=== PATIENT | male | born 1990 | race African-American/Black ===

== ENCOUNTER 2020-06-09 13:03 | Emergency (ER) | payer OTHER, SELFPAY ==
--- NOTE | 2020-06-09 14:16 | EDPHYS ---
Physician Documentation [facility] Name: Naveen Emmnauel Age: 29 yrs Sex: Male : 1990 Arrival Date: 06/09/2020 Time: 13:11 Bed 26 Private MD: ED Physician Remberto Marie HPI: 06/09 14:11 This 29 yrs old Black Male presents to ER via Ambulatory with complaints of STD rodrick Exposure. 14:11 The patient presents with urinary symptoms, dribbling of urine, dysuria. Onset: The rodrick symptoms/episode began/occurred 3 day(s) ago. Modifying factors: The symptoms are alleviated by nothing, the symptoms are aggravated by urinating, sexual intercourse. Associated signs and symptoms: The patient has no apparent associated signs or symptoms. Severity of symptoms: At their worst the symptoms were mild, in the emergency department the symptoms are unchanged. The patient has not experienced similar symptoms in the past. Historical: - Allergies: 13:16 No Known Allergies; tw2 - Home Meds: 13:16 None [Active]; tw2 - PMHx: 13:16 None; tw2 - PSHx: 13:16 None; tw2 - Immunization history:: Adult Immunizations. - Social history:: Smoking status: Patient denies any tobacco usage or history of. - Family history:: not pertinent. ROS: 14:11 Constitutional: Negative for fever, chills, and weight loss, Eyes: Negative for injury, rodrick pain, redness, and discharge, ENT: Negative for injury, pain, and discharge, Neck: Negative for injury, pain, and swelling, Cardiovascular: Negative for chest pain, palpitations, and edema, Respiratory: Negative for shortness of breath, cough, wheezing, and pleuritic chest pain, Abdomen/GI: Negative for abdominal pain, nausea, vomiting, diarrhea, and constipation, Back: Negative for injury and pain, MS/Extremity: Negative for injury and deformity, Skin: Negative for injury, rash, and discoloration, Neuro: Negative for headache, weakness, numbness, tingling, and seizure, Psych: Negative for depression, anxiety, suicide ideation, homicidal ideation, and hallucinations, Allergy/Immunology: Negative for hives, rash, and allergies, Endocrine: Negative for neck swelling, polydipsia, polyuria, polyphagia, and marked weight changes, Hematologic/Lymphatic: Negative for swollen nodes, abnormal bleeding, and unusual bruising. 14:11 : Positive for urinary symptoms, urinary frequency, burning with urination, penile discharge. Exam: 14:11 Constitutional: This is a well developed, well nourished patient who is awake, alert, rodrick and in no acute distress. Head/Face: Normocephalic, atraumatic. Eyes: Pupils equal round and reactive to light, extra-ocular motions intact. Lids and lashes normal. Conjunctiva and sclera are non-icteric and not injected. Cornea within normal limits. Periorbital areas with no swelling, redness, or edema. ENT: Nares patent. No nasal discharge, no septal abnormalities noted. Tympanic membranes are normal and external auditory canals are clear. Oropharynx with no redness, swelling, or masses, exudates, or evidence of obstruction, uvula midline. Mucous membranes moist. Neck: Trachea midline, no thyromegaly or masses palpated, and no cervical lymphadenopathy. Supple, full range of motion without nuchal rigidity, or vertebral point tenderness. No Meningismus. Chest/axilla: Normal chest wall appearance and motion. Nontender with no deformity. No lesions are appreciated. Cardiovascular: Regular rate and rhythm with a normal S1 and S2. No gallops, murmurs, or rubs. Normal PMI, no JVD. No pulse deficits. Respiratory: Lungs have equal breath sounds bilaterally, clear to auscultation and percussion. No rales, rhonchi or wheezes noted. No increased work of breathing, no retractions or nasal flaring. Abdomen/GI: Soft, non-tender, with normal bowel sounds. No distension or tympany. No guarding or rebound. No evidence of tenderness throughout. Back: No spinal tenderness. No costovertebral tenderness. Full range of motion. Skin: Warm, dry with normal turgor. Normal color with no rashes, no lesions, and no evidence of cellulitis. MS/ Extremity: Pulses equal, no cyanosis. Neurovascular intact. Full, normal range of motion. Neuro: Awake and alert, GCS 15, oriented to person, place, time, and situation. Cranial nerves II-XII grossly intact. Motor strength 5/5 in all extremities. Sensory grossly intact. Cerebellar exam normal. Normal gait. Psych: Awake, alert, with orientation to person, place and time. Behavior, mood, and affect are within normal limits. 14:11 : CVA tenderness, is absent, Male external genitalia: Circumcision noted. Bladder: is normal, Sexual behavior: the patient is sexually active, and reports multiple partners. Vital Signs: 13:14 BP 132 / 77; Pulse 74; Resp 17; Temp 97.3(TE); Pulse Ox 97% on R/A; Weight 90.72 kg tw2 (R); Height 5 ft. 10 in. (177.80 cm); Pain 0/10; 13:14 Body Mass Index 28.70 (90.72 kg, 177.80 cm) tw2 MDM: 13:42 Patient medically screened. rodrick 14:14 Data reviewed: vital signs, nurses notes. [facility] 14:14 Differential diagnosis: UTI, prostatitis, urethritis. Data interpreted: Cardiac rodrick monitor: not applicable for this patient encounter. rate is 74 beats/min, Pulse oximetry: on room air is 97 %. Counseling: I had a detailed discussion with the patient and/or guardian regarding: the historical points, exam findings, and any diagnostic results supporting the discharge/admit diagnosis, the need for outpatient follow up, for definitive care, a family practitioner. ED course: no sex, follow up pcp. Administered Medications: 14:33 Drug: Rocephin (cefTRIAXone) 500 mg Route: IM; Site: right ventrogluteal; vc 14:50 Follow up: Response: No adverse reaction vc 14:33 Drug: Cipro 500 mg Route: PO; vc 14:50 Follow up: Response: No adverse reaction vc 14:33 Drug: Zithromax 1 grams Route: PO; vc 14:50 Follow up: Response: No adverse reaction vc Disposition: 06/09/20 14:16 Discharged to Home. Impression: Urethral discharge, Urethral discharge, unspecified. - Condition is Stable. - Discharge Instructions: Sexually Transmitted Disease, Sexually Transmitted Disease, [id number], Urethritis, Adult. - Prescriptions for Doxycycline Hyclate 100 mg Oral Tablet - take 1 tablet by ORAL route every 12 hours; 20 tablet. - Medication Reconciliation Form, Thank You Letter, Antibiotic Education, Prescription Opioid Use form. - Follow up: Private Physician; When: 2 - 3 days; Reason: Recheck today's complaints, Continuance of care, Re-evaluation by your physician. - Problem is new. - Symptoms have improved. Signatures: Remberto Marie MD MD cha Wise, Tara, RN RN tw2 Emily Giron RN RN vc Corrections: (The following items were deleted from the chart) 14:53 14:16 06/09/2020 14:16 Discharged to Home. Impression: Urethral discharge; Urethral vc discharge, unspecified. Condition is Stable. Forms are Medication Reconciliation Form, Thank You Letter, Antibiotic Education, Prescription Opioid Use. Follow up: Private Physician; When: 2 - 3 days; Reason: Recheck today's complaints, Continuance of care, Re-evaluation by your physician. Problem is new. Symptoms have improved. rodrick
--- NOTE | 2020-06-09 14:16 | ER ---
Nurse's Notes [facility] Name: Naveen Emmanuel Age: 29 yrs Sex: Male : 1990 Arrival Date: 06/09/2020 Time: 13:11 Bed 26 Private MD: Diagnosis: Urethral discharge;Urethral discharge, unspecified Presentation: 06/09 13:14 Chief complaint: Patient states: i think i have a sexually transmitted disease, i had tw2 sex with the same girl last week as my friends and we think it is gonorrhea, i have been leaking green stuff as well. Coronavirus screen: Patient denies a cough. Patient denies shortness of breath or difficulty breathing. Patient denies measured and/or subjective temperature greater than 100.4F prior to today's visit. Patient denies travel on a cruise ship or to a country the [facility] currently lists as an affected area. Patient denies contact with known and/or suspected case of COVID-19. Ebola Screen: Patient denies travel to an Ebola-affected area in the 21 days before illness onset. Initial Sepsis Screen: Does the patient meet any 2 criteria? No. Patient's initial sepsis screen is negative. Does the patient have a suspected source of infection? No. Patient's initial sepsis screen is negative. Risk Assessment: Do you want to hurt yourself or someone else? Patient reports no desire to harm self or others. Onset of symptoms was June 09, 2020. 13:14 Method Of Arrival: Ambulatory tw2 13:14 Acuity: CELY 4 tw2 Triage Assessment: 13:18 General: Appears in no apparent distress. Behavior is calm, cooperative, appropriate tw2 for age. Pain: Denies pain. Historical: - Allergies: 13:16 No Known Allergies; tw2 - Home Meds: 13:16 None [Active]; tw2 - PMHx: 13:16 None; tw2 - PSHx: 13:16 None; tw2 - Immunization history:: Adult Immunizations. - Social history:: Smoking status: Patient denies any tobacco usage or history of. - Family history:: not pertinent. Screenin:37 Abuse screen: Denies threats or abuse. Nutritional screening: No deficits noted. tw2 Tuberculosis screening: No symptoms or risk factors identified. Fall Risk None identified. Assessment: 13:36 General: Appears in no apparent distress. Behavior is calm, cooperative, appropriate tw2 for age. Pain: Denies pain. Neuro: Level of Consciousness is awake, alert, obeys commands, Oriented to person, place, time, situation. Cardiovascular: Patient's skin is warm and dry. Respiratory: Airway is patent Respiratory effort is even, unlabored, Respiratory pattern is regular, symmetrical. GI: No signs and/or symptoms were reported involving the gastrointestinal system. : Reports discharge, from penis that is green, yellow. EENT: No signs and/or symptoms were reported regarding the EENT system. Derm: No signs and/or symptoms reported regarding the dermatologic system. Musculoskeletal: Range of motion: intact in all extremities. 14:34 Reassessment: Discharge pending shot time. vc Vital Signs: 13:14 BP 132 / 77; Pulse 74; Resp 17; Temp 97.3(TE); Pulse Ox 97% on R/A; Weight 90.72 kg tw2 (R); Height 5 ft. 10 in. (177.80 cm); Pain 0/10; 13:14 Body Mass Index 28.70 (90.72 kg, 177.80 cm) tw2 ED Course: 13:11 Patient arrived in ED. fj1 13:15 Triage completed. tw2 13:15 Arm band placed on. tw2 13:37 Bed in low position. Call light in reach. tw2 13:41 Remberto Marie MD is Attending Physician. rodrick 14:13 Emily Giron, RN is Primary Nurse. vc 14:52 No provider procedures requiring assistance completed. Patient did not have IV access vc during this emergency room visit. Administered Medications: 14:33 Drug: Rocephin (cefTRIAXone) 500 mg Route: IM; Site: right ventrogluteal; vc 14:50 Follow up: Response: No adverse reaction vc 14:33 Drug: Cipro 500 mg Route: PO; vc 14:50 Follow up: Response: No adverse reaction vc 14:33 Drug: Zithromax 1 grams Route: PO; vc 14:50 Follow up: Response: No adverse reaction vc Outcome: 14:16 Discharge ordered by . rodrick 14:52 Discharged to home ambulatory. vc 14:52 Condition: good 14:52 Discharge instructions given to patient, Instructed on discharge instructions, follow up and referral plans. medication usage, Demonstrated understanding of instructions, follow-up care, medications, Prescriptions given X 1. 14:53 Patient left the ED. vc Signatures: Remberto Marie MD MD cha Wise, Tara RN RN tw2 Emily Giron RN RN Brenden Ortez fj1
[2020-06-09] MEDS ORDERED: CIPROFLOXACIN HCL 500 MG TAB ONE (14:26)
[2020-06-09] MEDS ORDERED: AZITHROMYCIN 250 MG TAB ONE (14:26)
[2020-06-09] MEDS ORDERED: CEFTRIAXONE 500 MG/VIAL ONE (14:26)
[2020-06-09] MEDS ORDERED: LIDOCAINE 1% MPF 2 ML AMPULE ONE (14:27)
[2020-06-09 14:59] VITALS: BP 132/77; TEMP 97.3; O2SAT 97
== END 2020-06-09 14:53 | disposition home or self-care (01) ==
LOC: ER 13:03
DX: R36.9 Urethral discharge, unspecified (principal)
CPT/HCPCS: 96372; 99283; J0696; J2001

== ENCOUNTER 2020-11-24 16:50 | Emergency (ER) | payer SELFPAY ==
--- OUTSIDE RECORDS SUMMARY | 2020-11-24 16:52 | XMS REPORT | Continuity of Care Document ---
:1990 Author Organization [facility] t Address [address] [place] [address] Care Team Providers Name Role Phone Rashida CASTILLO Attending Clinician Problems This patient has no known problems. Allergies, Adverse Reactions, Alerts This patient has no known allergies or adverse reactions. Medications This patient has no known medications. Procedures This patient has no known procedures. Encounters Start End Encounter Admission Attending Care Care Encounter Source Date/Time Date/Time Type Type Clinicians Facility Department ID 2020-03-15 2020-03-15 Emergency [facility] [id number] 14:10:58 15:32:00 Fausto Brown [id number] [place] [id number] [place] [id number] Results This patient has no known results.
--- NOTE | 2020-11-24 17:04 | ER ---
Nurse's Notes [facility] Name: Naveen Emmanuel Age: 30 yrs Sex: Male : 1990 Arrival Date: 11/24/2020 Time: 16:51 Bed Waiting Private MD: Diagnosis: Unspecified sexually transmitted disease Presentation: 11/24 16:56 Chief complaint: Patient states: "I think I got gonorrhea. I've been having burning ss with urination.". Coronavirus screen: Client denies travel out of the [place] in the last 14 days. Ebola Screen: Patient denies exposure to infectious person. Patient denies travel to an Ebola-affected area in the 21 days before illness onset. Initial Sepsis Screen: Does the patient meet any 2 criteria? No. Patient's initial sepsis screen is negative. Does the patient have a suspected source of infection? No. Patient's initial sepsis screen is negative. Risk Assessment: Do you want to hurt yourself or someone else? Patient reports no desire to harm self or others. Onset of symptoms was November 22, 2020. 16:56 Method Of Arrival: Ambulatory ss 16:56 Acuity: CELY 4 ss Historical: - Allergies: 16:57 No Known Allergies; ss - Home Meds: 16:57 None [Active]; ss - PMHx: 16:57 None; ss - PSHx: 16:57 None; ss - Immunization history:: Adult Immunizations up to date. - Social history:: Smoking status: Patient denies any tobacco usage or history of. Screenin:56 Abuse screen: Denies threats or abuse. Denies injuries from another. Nutritional ss screening: No deficits noted. Tuberculosis screening: No symptoms or risk factors identified. Fall Risk None identified. Assessment: 16:56 General: Appears in no apparent distress. comfortable, Behavior is calm, cooperative. ss General: Denies fever, feeling ill, fatigue, chills. Pain: Denies pain. Neuro: Level of Consciousness is awake, alert, obeys commands, Oriented to person, place, time, situation. Cardiovascular: Capillary refill < 3 seconds is brisk in bilateral fingers. Respiratory: Airway is patent Respiratory effort is even, unlabored, Respiratory pattern is regular, symmetrical. GI: Patient currently denies. : Reports discharge, from penis that is since x 2 days. EENT: Nares are clear. Derm: Skin is intact, is healthy with good turgor, Skin is pink, warm \\T\\ dry. normal. Musculoskeletal: Circulation, motion, and sensation intact. Range of motion: intact in all extremities, Swelling absent. Vital Signs: 16:57 Pulse 89; Resp 16; Temp 97.8(TE); Pulse Ox 99% on R/A; Weight 92.99 kg; Height 5 ft. 11 ss in. (180.34 cm); Pain 0/10; 16:59 BP 148 / 96; ss 16:57 Body Mass Index 28.59 (92.99 kg, 180.34 cm) ss ED Course: 16:51 Patient arrived in ED. as 16:54 Britany Rush FNP-C [facility]. kb 16:54 Remberto Marie MD is Attending Physician. kb 16:56 Triage completed. ss 16:56 Patient has correct armband on for positive identification. Bed in low position. Call ss light in reach. 16:56 No provider procedures requiring assistance completed. Patient did not have IV access ss during this emergency room visit. 16:57 Arm band placed on right wrist. ss 17:25 Nicole Vila, EDIL is Primary Nurse. ss Administered Medications: 17:08 Drug: Zithromax 1 grams Route: PO; ss 17:25 Follow up: Response: No adverse reaction ss 17:08 Drug: Rocephin (cefTRIAXone) 250 mg Route: IM; Site: left gluteus; ss 17:25 Follow up: Response: No adverse reaction; Medication administered at discharge. ss Outcome: 17:03 Discharge ordered by . kb 17:26 Discharged to home ambulatory. ss 17:26 Condition: good 17:26 Discharge instructions given to patient, family, Instructed on discharge instructions, follow up and referral plans. Demonstrated understanding of instructions, follow-up care. 17:26 Patient left the ED. ss Signatures: Britany Rush FNP-C FNP-Katlyn Allan as Nicole Vila, RN RN ss
--- NOTE | 2020-11-24 17:04 | EDPHYS ---
Physician Documentation [facility] Name: Naveen Emmanuel Age: 30 yrs Sex: Male : 1990 Arrival Date: 11/24/2020 Time: 16:51 Bed Waiting Private MD: Remberto Dewey HPI: 11/24 17:01 This 30 yrs old Black Male presents to ER via Ambulatory with complaints of STD kb Exposure. 17:01 The patient presents with a possible STD exposure, symptoms include dysuria, green kb penile discharge. Onset: The symptoms/episode began/occurred 2 day(s) ago. Modifying factors: The symptoms are alleviated by nothing, the symptoms are aggravated by nothing. Associated signs and symptoms: The patient has no apparent associated signs or symptoms. Severity of symptoms: At their worst the symptoms were moderate, in the emergency department the symptoms are unchanged. The patient has not experienced similar symptoms in the past. The patient has not recently seen a physician. Pt reports he believes he has gonorrhea because he has had burning with urination and green discharge for 2 days. Historical: - Allergies: 16:57 No Known Allergies; ss - Home Meds: 16:57 None [Active]; ss - PMHx: 16:57 None; ss - PSHx: 16:57 None; ss - Immunization history:: Adult Immunizations up to date. - Social history:: Smoking status: Patient denies any tobacco usage or history of. ROS: 17:00 Constitutional: Negative for fever, chills, and weight loss, Cardiovascular: Negative kb for chest pain, palpitations, and edema, Respiratory: Negative for shortness of breath, cough, wheezing, and pleuritic chest pain, Abdomen/GI: Negative for abdominal pain, nausea, vomiting, diarrhea, and constipation, MS/Extremity: Negative for injury and deformity, Skin: Negative for injury, rash, and discoloration, Neuro: Negative for headache, weakness, numbness, tingling, and seizure. 17:00 : Positive for burning with urination, penile discharge. Exam: 17:00 Constitutional: This is a well developed, well nourished patient who is awake, alert, kb and in no acute distress. Head/Face: Normocephalic, atraumatic. Chest/axilla: Normal chest wall appearance and motion. Nontender with no deformity. No lesions are appreciated. Cardiovascular: Regular rate and rhythm with a normal S1 and S2. No gallops, murmurs, or rubs. Normal PMI, no JVD. No pulse deficits. Respiratory: Lungs have equal breath sounds bilaterally, clear to auscultation and percussion. No rales, rhonchi or wheezes noted. No increased work of breathing, no retractions or nasal flaring. Abdomen/GI: Soft, non-tender, with normal bowel sounds. No distension or tympany. No guarding or rebound. No evidence of tenderness throughout. Skin: Warm, dry with normal turgor. Normal color with no rashes, no lesions, and no evidence of cellulitis. MS/ Extremity: Pulses equal, no cyanosis. Neurovascular intact. Full, normal range of motion. Neuro: Awake and alert, GCS 15, oriented to person, place, time, and situation. Cranial nerves II-XII grossly intact. Motor strength 5/5 in all extremities. Sensory grossly intact. Cerebellar exam normal. Normal gait. Vital Signs: 16:57 Pulse 89; Resp 16; Temp 97.8(TE); Pulse Ox 99% on R/A; Weight 92.99 kg; Height 5 ft. 11 ss in. (180.34 cm); Pain 0/10; 16:59 BP 148 / 96; ss 16:57 Body Mass Index 28.59 (92.99 kg, 180.34 cm) ss MDM: 17:00 Data reviewed: vital signs, nurses notes. Data interpreted: Pulse oximetry: on room air kb is 99 %. Interpretation: normal. Counseling: I had a detailed discussion with the patient and/or guardian regarding: the historical points, exam findings, and any diagnostic results supporting the discharge/admit diagnosis, the need for outpatient follow up, a family practitioner, to return to the emergency department if symptoms worsen or persist or if there are any questions or concerns that arise at home. 17:03 Patient medically screened. kb Administered Medications: 17:08 Drug: Zithromax 1 grams Route: PO; ss 17:25 Follow up: Response: No adverse reaction ss 17:08 Drug: Rocephin (cefTRIAXone) 250 mg Route: IM; Site: left gluteus; ss 17:25 Follow up: Response: No adverse reaction; Medication administered at discharge. Disposition: 18:40 Co-signature as Attending Physician, Remberto Marie MD I agree with the assessment and rodrick plan of care. Disposition: 11/24/20 17:03 Discharged to Home. Impression: Unspecified sexually transmitted disease. - Condition is Stable. - Discharge Instructions: Sexually Transmitted Disease, [id number]. - Medication Reconciliation Form, Thank You Letter, Antibiotic Education, Prescription Opioid Use form. - Follow up: Emergency Department; When: As needed; Reason: Worsening of condition. Follow up: Private Physician; When: 2 - 3 days; Reason: Recheck today's complaints, Continuance of care, Re-evaluation by your physician. Signatures: Britany Rush, [employer]C [employer]-Uvaldob Remberto Marie MD MD cha Smirch, Shelby, RN RN ss Corrections: (The following items were deleted from the chart) 17:26 17:03 11/24/2020 17:03 Discharged to Home. Impression: Unspecified sexually transmitted ss disease. Condition is Stable. Forms are Medication Reconciliation Form, Thank You Letter, Antibiotic Education, Prescription Opioid Use. Follow up: Emergency Department; When: As needed; Reason: Worsening of condition. Follow up: Private Physician; When: 2 - 3 days; Reason: Recheck today's complaints, Continuance of care, Re-evaluation by your physician. kb
[2020-11-24] MEDS ORDERED: WATER FOR INJ,STERILE 10 ML ONE (17:16)
[2020-11-24] MEDS ORDERED: AZITHROMYCIN 250 MG TAB ONE (17:16)
[2020-11-24] MEDS ORDERED: CEFTRIAXONE 250 MG/VIAL ONE (17:16)
[2020-11-24 17:39] VITALS: TEMP 97.8; O2SAT 99
[2020-11-24 17:40] VITALS: BP 148/96
== END 2020-11-24 17:26 | disposition home or self-care (01) ==
LOC: ER 16:50
DX: A64 Unspecified sexually transmitted disease (principal)
CPT/HCPCS: 96372; 99283; J0696

== ENCOUNTER 2022-03-02 10:05 | Emergency (ER) | payer SELFPAY ==
--- OUTSIDE RECORDS SUMMARY | 2022-03-02 10:08 | XMS REPORT | Continuity of Care Document ---
:1990 Author Organization [facility] t Address [address] [place] [address] Care Team Providers Name Role Phone Pcp, Does Not Have A Primary Care Physician Felipe Glynn DO Attending Clinician Felipe GLYNN Attending Clinician Unavailable Rashida SANCHEZP Attending Clinician RAHSIDA Attending Clinician Unavailable Problems Condition Condition Condition Status Onset Resolution Last Treating Co mments Source Name Details Category Date Date Treatment Clinician Date No known No known Disease Unive rs active active ity of problems problems [facility] Allergies, Adverse Reactions, Alerts Allergy Allergy Status Severity Reaction(s) Onset Inactive Treating Comm ents Source Name Type Date Date Clinician NO KNOWN Drug Active Univers ALLERGIE Class ity of S [facility] Social History Social Habit Start Date Stop Date Quantity Comments Source Exposure to Not sure [facility] SARS-CoV-2 (event) Medica l Branch Sex Assigned At [birth year] [facility] 00:00:00 00:00:00 [facility] Smoking Status Start Date Stop Date Source Unknown if ever smoked [facility] Medications Ordered Filled Start Stop Current Ordering Indication Dosage Frequency Signature Comments Components Source Medication Medication Date Date Medication? Clinician (SIG) Name Name cefTRIAXone Yes 500mg 500 mg, Un marcin (ROCEPHIN) 2-16 Intramuscu ity of injection 22:00: lar, Q24H, [place] 500 mg 00 First dose Medical on Mon Branch 12/29/21 at 1600, Until Discontinu ed, BRAIN
Re ason for Anti-Infec tive: Empiric Therapy for Suspected Infection< br>Empiric Therapy Site: Pelvic
Duration of therapy: 72 hours azithromyci 1000mg 1,000 mg, Univers n 12-29 Oral, ity of (ZITHROMAX) 22:00: 21:04 ONCE, 1 [place] tablet 00 :00 dose, On Medical 1,000 mg Wed Branch 12/29/21 at 1600, BRAIN
Re ason for Anti-Infec tive: Empiric Therapy for Suspected Infection< br>Empiric Therapy Site: Pelvic
Duration of therapy: 72 hours No known No Univers medications 12-29 ity of 14:50: [address] Vital Signs Vital Name Observation Time Observation Value Comments Source Systolic blood 2021-12-29 20:49:00 153 mm[Hg] Univer sity of pressure [facility] Diastolic blood 2021-12-29 20:49:00 86 mm[Hg] [facility] 2021-12-29 20:49:00 81 /min [facility] Body temperature 2021-12-29 20:49:00 37.22 Rachel [facility] Respiratory rate 2021-12-29 20:49:00 16 /min [facility] Body height 2021-12-29 20:49:00 180.3 cm [facility] Body weight 2021-12-29 20:49:00 90.719 kg [facility] BMI 2021-12-29 20:49:00 27.89 kg/m2 [facility] Oxygen saturation in 2021-12-29 20:49:00 98 /min [facility] Arterial blood by [facility] Pulse oximetry Branch Procedures Procedure Date / Time Performed Performing Clinician [facility] e NOTICE OF PRIVACY 2021-12-29 20:48:28 Doctor Unassigned, No Univ [facility] CONSENT/REFUSAL FOR 2021-12-29 20:45:33 Doctor Unassigned, [facility] AND Name Medical Branch TREATMENT Encounters Start End Encounter Admission Attending Care Care Encounter Source Date/Time Date/Time Type Type Clinicians Facility Department ID 2021-12-29 2021-12-29 [facility] [id number] Univers 14:52:00 15:43:00 Nahomy BROWN [id number] yunior [facility] [id number] [facility] [id number] [address] 2021-12-29 2021-12-29 Emergency [facility] ERT [id number] Univers 14:52:00 15:43:00 NAHOMY mojica [facility] 2020-03-15 2020-03-[address] [facility] [id number] 14:10:58 15:32:00 Fausto Brown [id number] [place] [id number] [place] [id number] [facility] 2020-03-15 2020-03-15 Emergency [facility] ERT [id number] Univers 14:10:58 14:10:58 FAUSTO mojica [facility] Results This patient has no known results.
[2022-03-02] MEDS ORDERED: DOXYCYCLINE 100 MG CAP PO ONE (10:32)
[2022-03-02] MEDS ORDERED: AZITHROMYCIN 250 MG TAB ONE (10:32)
[2022-03-02] MEDS ORDERED: CEFTRIAXONE 1000 MG/VIAL ONE (10:32)
[2022-03-02 10:38] LABS: Urine Blood Negative (Negative); Urine Glucose Negative (Negative); Urine Protein Negative (Negative); Urine Specific Gravity 1.025 (1.005-1.030); Urine pH 6.5 (5.0-7.0)
--- NOTE | 2022-03-02 10:38 | EDPHYS ---
Physician Documentation [facility] Name: Naveen Emmanuel Age: 31 yrs Sex: Male : 1990 Arrival Date: 03/02/2022 Time: 10:07 Bed Treatment Private MD: Remberto Dewey HPI: 03/02 10:33 This 31 yrs old Black Male presents to ER via Unassigned with complaints of STD rodrick Exposure. 10:33 The patient presents with symptoms include yellow penile discharge, urinary symptoms, rodrick dysuria. Onset: The symptoms/episode began/occurred 3 day(s) ago. Modifying factors: The symptoms are alleviated by nothing, the symptoms are aggravated by urinating. Associated signs and symptoms: The patient has no apparent associated signs or symptoms. Severity of symptoms: At their worst the symptoms were mild, in the emergency department the symptoms are unchanged. The patient has experienced similar episodes in the past, multiple times. Historical: - Allergies: 10:37 No Known Allergies; ab2 - PMHx: 10:37 None; ab2 - Immunization history:: Adult Immunizations up to date. - Social history:: Smoking status: Patient reports the use of cigarette tobacco products, smokes one-half pack cigarettes per day. - Family history:: not pertinent. ROS: 10:33 Constitutional: Negative for fever, chills, and weight loss, Eyes: Negative for injury, rodrick pain, redness, and discharge, ENT: Negative for injury, pain, and discharge, Neck: Negative for injury, pain, and swelling, Cardiovascular: Negative for chest pain, palpitations, and edema, Respiratory: Negative for shortness of breath, cough, wheezing, and pleuritic chest pain, Abdomen/GI: Negative for abdominal pain, nausea, vomiting, diarrhea, and constipation, Back: Negative for injury and pain, MS/Extremity: Negative for injury and deformity, Skin: Negative for injury, rash, and discoloration, Neuro: Negative for headache, weakness, numbness, tingling, and seizure, Psych: Negative for depression, anxiety, suicide ideation, homicidal ideation, and hallucinations, Allergy/Immunology: Negative for hives, rash, and allergies, Endocrine: Negative for neck swelling, polydipsia, polyuria, polyphagia, and marked weight changes, Hematologic/Lymphatic: Negative for swollen nodes, abnormal bleeding, and unusual bruising. 10:33 : Positive for burning with urination, penile discharge, of the meatus. Exam: 10:33 Constitutional: This is a well developed, well nourished patient who is awake, alert, rodrick and in no acute distress. Head/Face: Normocephalic, atraumatic. Eyes: Pupils equal round and reactive to light, extra-ocular motions intact. Lids and lashes normal. Conjunctiva and sclera are non-icteric and not injected. Cornea within normal limits. Periorbital areas with no swelling, redness, or edema. ENT: Nares patent. No nasal discharge, no septal abnormalities noted. Tympanic membranes are normal and external auditory canals are clear. Oropharynx with no redness, swelling, or masses, exudates, or evidence of obstruction, uvula midline. Mucous membranes moist. Neck: Trachea midline, no thyromegaly or masses palpated, and no cervical lymphadenopathy. Supple, full range of motion without nuchal rigidity, or vertebral point tenderness. No Meningismus. Chest/axilla: Normal chest wall appearance and motion. Nontender with no deformity. No lesions are appreciated. Cardiovascular: Regular rate and rhythm with a normal S1 and S2. No gallops, murmurs, or rubs. Normal PMI, no JVD. No pulse deficits. Respiratory: Lungs have equal breath sounds bilaterally, clear to auscultation and percussion. No rales, rhonchi or wheezes noted. No increased work of breathing, no retractions or nasal flaring. Abdomen/GI: Soft, non-tender, with normal bowel sounds. No distension or tympany. No guarding or rebound. No evidence of tenderness throughout. Back: No spinal tenderness. No costovertebral tenderness. Full range of motion. Skin: Warm, dry with normal turgor. Normal color with no rashes, no lesions, and no evidence of cellulitis. MS/ Extremity: Pulses equal, no cyanosis. Neurovascular intact. Full, normal range of motion. Neuro: Awake and alert, GCS 15, oriented to person, place, time, and situation. Cranial nerves II-XII grossly intact. Motor strength 5/5 in all extremities. Sensory grossly intact. Cerebellar exam normal. Normal gait. Psych: Awake, alert, with orientation to person, place and time. Behavior, mood, and affect are within normal limits. 10:33 : Male external genitalia: normal, no abrasion, penile discharge, purulent, Bladder: is normal, Sexual behavior: the patient is sexually active, and reports multiple partners. Vital Signs: 10:36 BP 136 / 89; Pulse 72; Resp 18; Temp 97.9; Pulse Ox 100% on R/A; Weight 88.45 kg; ab2 Height 5 ft. 11 in. (180.34 cm); Pain 3/10; 10:55 BP 129 / 86; Pulse 74; Resp 17; Pulse Ox 100% on R/A; ab2 10:36 Body Mass Index 27.20 (88.45 kg, 180.34 cm) ab2 MDM: 10:25 Patient medically screened. rodrick 10:36 Differential diagnosis: prostatitis, urethritis. Data reviewed: vital signs, nurses rodrick notes. Data interpreted: security monitor: not applicable for this patient encounter. rate is 63 beats/min, rhythm is regular, Pulse oximetry: on room air is 100 %. 03/02 10:38 Order name: Urine Dipstick-Ancillary EDMS 03/02 10:20 Order name: Urine Dipstick-Ancillary (obtain specimen); Complete Time: 10:35 rodrick Administered Medications: 10:35 Drug: Doxycycline 200 mg Route: PO; ab2 10:36 Drug: Rocephin (cefTRIAXone) 1 grams Route: IM; Site: left vastus lateralis; ab2 10:36 Drug: Zithromax (azithromycin) 1 grams Route: PO; ab2 Disposition Summary: 03/02/22 10:37 Discharge [facility] Symptoms: have improved [facility] Condition: Stable [facility] Diagnosis - Other urethritis - gc rodrick - Dysuria rodrick Followup: rodrick - With: Private Physician - When: 2 - 3 days - Reason: Recheck today's complaints, Continuance of care, Re-evaluation by your physician Discharge Instructions: - Discharge Summary Sheet rodrick - Dysuria rodrick - Urethritis, Adult [facility] - Preventing Sexually Transmitted Infections, Adult [facility] Forms: - Medication Reconciliation Form [facility] - Thank You Letter rodrick - Antibiotic Education rodrick - Prescription Opioid Use [facility] Prescriptions: - Doxycycline Hyclate 100 mg Oral Tablet - take 1 tablet by ORAL route every 12 hours; 20 tablet; Refills: 0, Product rodrick Selection Permitted Signatures: Remberto Marie MD MD cha Bleininger, Alexis ab2 Corrections: (The following items were deleted from the chart) 10:24 10:20 Urine Test ordered. rodrick elliott
--- NOTE | 2022-03-02 10:38 | ER ---
Nurse's Notes [facility] Name: Naveen Emmanuel Age: 31 yrs Sex: Male : 1990 Arrival Date: 03/02/2022 Time: 10:07 Bed Treatment Private MD: Diagnosis: Other urethritis-gc;Dysuria Presentation: 03/02 10:36 Chief complaint: Patient states: Pt c/o burning with urination and green discharge from ab2 penis for 3 days now. Coronavirus screen: Vaccine status: Patient reports being unvaccinated. Client denies travel out of the [place] in the last 14 days. At this time, the client does not indicate any symptoms associated with coronavirus-19. Ebola Screen: Patient negative for fever greater than or equal to 101.5 degrees Fahrenheit, and additional compatible Ebola Virus Disease symptoms Patient denies exposure to infectious person. Patient denies travel to an Ebola-affected area in the 21 days before illness onset. No symptoms or risks identified at this time. Initial Sepsis Screen: Does the patient meet any 2 criteria? No. Patient's initial sepsis screen is negative. Does the patient have a suspected source of infection? No. Patient's initial sepsis screen is negative. Risk Assessment: Do you want to hurt yourself or someone else? Patient reports no desire to harm self or others. Onset of symptoms is unknown. 10:36 Method Of Arrival: Ambulatory ab2 10:36 Acuity: CELY 4 ab2 Historical: - Allergies: 10:37 No Known Allergies; ab2 - PMHx: 10:37 None; ab2 - Immunization history:: Adult Immunizations up to date. - Social history:: Smoking status: Patient reports the use of cigarette tobacco products, smokes one-half pack cigarettes per day. - Family history:: not pertinent. Screenin:38 Abuse screen: Denies threats or abuse. Denies injuries from another. Nutritional ab2 screening: No deficits noted. Tuberculosis screening: No symptoms or risk factors identified. Fall Risk None identified. Assessment: 10:37 General: Appears in no apparent distress. comfortable, Behavior is calm, cooperative, ab2 appropriate for age. Pain: Complains of pain in pelvis Pain does not radiate. Pain currently is 3 out of 10 on a pain scale. Neuro: Level of Consciousness is awake, alert, obeys commands, Oriented to person, place, time, situation, Appropriate for age Global Ceo are equal bilaterally Moves all extremities. Gait is steady, Speech is normal, Facial symmetry appears normal. Cardiovascular: No deficits noted. Denies chest pain, shortness of breath, Heart tones S1 S2 present Patient's skin is warm and dry. Respiratory: Airway is patent Respiratory effort is even, unlabored, Respiratory pattern is regular, symmetrical, Breath sounds are clear bilaterally. GI: No deficits noted. No signs and/or symptoms were reported involving the gastrointestinal system. : Reports burning with urination, discharge, from penis that is green, Patient is sexually active. Derm: No deficits noted. No signs and/or symptoms reported regarding the dermatologic system. Vital Signs: 10:36 BP 136 / 89; Pulse 72; Resp 18; Temp 97.9; Pulse Ox 100% on R/A; Weight 88.45 kg; ab2 Height 5 ft. 11 in. (180.34 cm); Pain 3/10; 10:55 BP 129 / 86; Pulse 74; Resp 17; Pulse Ox 100% on R/A; ab2 10:36 Body Mass Index 27.20 (88.45 kg, 180.34 cm) ab2 ED Course: 10:07 Patient arrived in ED. am2 10:19 Remberto Marie MD is Attending Physician. [facility] 10:23 Omar De Los Santos is Primary Nurse. ab2 10:37 Triage completed. ab2 10:38 Arm band placed on right wrist. ab2 10:38 No provider procedures requiring assistance completed. ab2 10:39 Patient has correct armband on for positive identification. Bed in low position. Call ab2 light in reach. Side rails up X2. 10:55 Patient did not have IV access during this emergency room visit. ab2 Administered Medications: 10:35 Drug: Doxycycline 200 mg Route: PO; ab2 10:36 Drug: Rocephin (cefTRIAXone) 1 grams Route: IM; Site: left vastus lateralis; ab2 10:36 Drug: Zithromax (azithromycin) 1 grams Route: PO; ab2 Outcome: 10:37 Discharge ordered by . rodrick 10:55 Discharged to home ambulatory. ab2 10:55 Condition: good 10:55 Discharge instructions given to patient, Instructed on discharge instructions, follow up and referral plans. medication usage, safe sex practices, Demonstrated understanding of instructions, follow-up care, medications, Prescriptions given X 1. 10:55 Patient left the ED. ab2 Signatures: Remberto Marie MD MD cha Moreno, Amanda am2 Bleininger, Alexis ab2
[2022-03-02 15:37] VITALS: TEMP 97.9; O2SAT 100
[2022-03-02 15:39] VITALS: BP 129/86
== END 2022-03-02 10:55 | disposition home or self-care (01) ==
LOC: ER 10:05
DX: N34.2 Other urethritis (principal); F17.210 Nicotine dependence, cigarettes, uncomplicated
CPT/HCPCS: 81003; 96372; 99283

== ENCOUNTER 2022-07-20 09:09 | Emergency (ER) | payer SELFPAY ==
--- OUTSIDE RECORDS SUMMARY | 2022-07-20 09:12 | XMS REPORT | Continuity of Care Document ---
:1990 Author Organization [facility] t Address [address] [place] [address] Care Team Providers Name Role Phone Pcp, Patient Does Not Have A Primary Care Physician +[id number] CASSIDY ARCE Attending Clinician Unavailable Cassidy Lentz Attending Clinician Nahomy Glynn DO Attending Clinician NAHOMY GLYNN Attending Clinician Unavailable Fausto Dasilva Attending Clinician FAUSTO TALAVERA Attending Clinician Unavailable Problems Condition Condition Condition Status Onset Resolution Last Treating Co mments Source Name Details Category Date Date Treatment Clinician Date No known No known Disease Unive rs active active ity of problems problems [facility] Allergies, Adverse Reactions, Alerts Allergy Allergy Status Severity Reaction(s) Onset Inactive Treating Comm ents Source Name Type Date Date Clinician NO KNOWN Drug Active Univers ALLERGIE Class ity of S [facility] Social History Social Habit Start Date Stop Date Quantity Comments Source Exposure to 2022-05-29 2022-06-08 Not sure [facility] SARS-CoV-2 (event) 00:00:00 17:38:00 Medica l Branch Sex Assigned At [birth year] [facility] 00:00:00 00:00:00 Medical Branch Smoking Status Start Date Stop Date Source Tobacco smoking consumption Univ [facility] unknown Branch Medications Ordered Filled Start Stop Current Ordering Indication Dosage Frequency Signature Comments Components Source Medication Medication Date Date Medication? Clinician (SIG) Name Name cefTRIAXone 2021- No 500mg 500 mg, U nivers (ROCEPHIN) 06-09 Intramuscu it y of injection 00:30: 00:11 lar, ONCE, [place] 500 mg 00 :00 1 dose, On Medical Wed Branch 06/08/22 at 1930, BRAIN
Re ason for Anti-Infec tive: Empiric Therapy for Suspected Infection< br>Empiric Therapy Site: Urine
D uration of therapy: 7 days metroNIDAZO 2021- No 500mg 500 mg, U nivers LE (FLAGYL) 06-08 Oral, ity of tablet 500 23:30: 00:11 ONCE, 1 [place] as mg 00 :00 dose, On [facility] Branch 06/08/22 at 1830, BRAIN
Re ason for Anti-Infec tive: Documented Infection< br>Documen surinder Infection Site: Urine
D uration of Therapy: 7 days doxycycline 2021- No 100mg 100 mg, U nivers hyclate 06-08 Oral, ity of (Vibramycin 23:30: 00:11 ONCE, 1 [place] capsule 00 :00 dose, On Medica l 100 mg Wed Branch 06/08/22 at 1830, BRAIN
Re ason for Anti-Infec tive: Empiric Therapy for Suspected Infection< br>Empiric Therapy Site: Urine
D uration of therapy: 7 days doxycycline 2021- Yes [id number] 100mg Take 1 Univers hyclate 100 06-08 capsule by i ty of mg capsule 00:00: 04:59 mouth in [place] 00 :00 the Medical morning Branch and 1 capsule in the evening. Do all this for 7 days. metroNIDAZO 2021- Yes [id number] 500mg Take 1 Univers LE 500 mg 06-08 tablet by ity of tablet 00:00: 04:59 mouth in [place] 00 :00 the Medical morning Branch and 1 tablet in the evening. Do all this for 7 days. cefTRIAXone Yes 500mg 500 mg, Un marcin (ROCEPHIN) 2-16 Intramuscu ity of injection 22:00: lar, Q24H, [place] 500 mg 00 First dose Medical on Mon Branch 12/29/21 at 1600, Until Discontinu ed, BRAIN
Re ason for Anti-Infec tive: Empiric Therapy for Suspected Infection< br>Empiric Therapy Site: Pelvic
Duration of therapy: 72 hours azithromyci No 1000mg 1,000 mg, Univers n 12-29 Oral, ity of (ZITHROMAX) 22:00: 21:04 ONCE, 1 [place] tablet 00 :00 dose, On Medical 1,000 mg Mon Branch 12/29/21 at 1600, BRAIN
Re ason for Anti-Infec tive: Empiric Therapy for Suspected Infection< br>Empiric Therapy Site: Pelvic
Duration of therapy: 72 hours No known No Univers medications 12-29 ity of 14:50: [address] Vital Signs Vital Name Observation Time Observation Value Comments Source Systolic blood 2022-06-08 22:36:00 140 mm[Hg] Univer sity of [facility] Diastolic blood 2022-06-08 22:36:00 87 mm[facility]Hg[facility] 2022-06-08 22:36:00 92 /min [facility] Body temperature 2022-06-08 22:36:00 36.61 Rachel [facility] Respiratory rate 2022-06-08 22:36:00 14 /min [facility] Body height 2022-06-08 22:36:00 180.3 cm [facility] Body weight 2022-06-08 22:36:00 86.183 kg [facility] BMI 2022-06-08 22:36:00 26.50 kg/m2 [facility] Oxygen saturation in 2022-06-08 22:36:00 99 /min [facility] Arterial blood by [facility] Pulse oximetry Branch Systolic blood 2021-12-29 20:49:00 153 mm[Hg] Univer sity of [facility] Diastolic blood 2021-12-29 20:49:00 86 mm[Hg] [facility] 2021-12-29 20:49:00 81 /min [facility] Body temperature 2021-12-29 20:49:00 37.22 Rachel [facility] 2021-12-29 20:49:00 16 /min [facility] Body height 2021-12-29 20:49:00 180.3 cm [facility] Body weight 2021-12-29 20:49:00 90.719 kg [facility] BMI 2021-12-29 20:49:00 27.89 kg/m2 [facility] Oxygen saturation in 2021-12-29 20:49:00 98 /min [facility] Arterial blood by [facility] Pulse oximetry [place] Procedures Procedure Date / Time Performed Performing Clinician Sourc e URINALYSIS 2022-06-08 22:43:00 Nahomy Glynn [facility] CONSENT/REFUSAL FOR 2022-06-08 22:25:00 [facility] AND Name Medical Branch TREATMENT NOTICE OF PRIVACY 2021-12-29 20:48:28 Doctor Unassigned, No [facility] [place] [facility] Name Medical Branch CONSENT/REFUSAL FOR 2021-12-29 20:45:33 Doctor Unassigned, [facility] AND Name Medical Branch TREATMENT Encounters Start End Encounter Admission Attending Care Care Encounter Source Date/Time Date/Time Type Type Clinicians Facility Department ID 2022-06-08 2022-06-08 Emergency X CLAUDE [facility] ERT [id number] Univers 17:43:00 19:52:00 CASSIDY mojica [facility] 2022-06-08 2022-06-08 Emergency Claude [facility] [id number] Univers 17:43:00 19:52:00 Cassidy BROWN [id number] yunior [facility] [id number] [facility] [id number] [facility] 084 Branch 2021-12-29 2021-12-29 Emergency Gretta PACHANNING [id number] Univers 14:52:00 15:43:00 Nahomy BROWN [id number] yunior [facility] [id number] [facility] [id number] [address] 2021-12-29 2021-12-29 Emergency X GRETTA [facility] ERT [id number] Univers 14:52:00 15:43:00 NAHOMY mojica [facility] 2020-03-15 2020-03-15 [facility] [id number] 14:10:58 15:32:00 Fausto Brown [id number] [place] [id number] [facility] [id number] [facility] 2020-03-15 2020-03-15 Emergency [facility] [id number] Univers 14:10:58 14:10:58 FAUSTO mojica [facility] Results This patient has no known results.
--- NOTE | 2022-07-20 09:43 | ER ---
Nurse's Notes [facility] Name: Naveen Emmanuel Age: 31 yrs Sex: Male : 1990 Arrival Date: 07/20/2022 Time: 09:21 Bed Waiting Private MD: Diagnosis: Dysuria Presentation: 07/20 09:39 Chief complaint: Patient states: I think I have gonorrhea. Someone that I was with bm7 tested positive and now I am having problems peeing. Coronavirus screen: At this time, the client does not indicate any symptoms associated with coronavirus-19. Ebola Screen: No symptoms or risks identified at this time. Initial Sepsis Screen: Does the patient meet any 2 criteria? No. Patient's initial sepsis screen is negative. Does the patient have a suspected source of infection? No. Patient's initial sepsis screen is negative. Risk Assessment: Do you want to hurt yourself or someone else? Patient reports no desire to harm self or others. Onset of symptoms was July 19, 2022. Care prior to arrival: None. 09:39 Method Of Arrival: Ambulatory [facility] 09:39 Acuity: CELY 4 bm7 Triage Assessment: 09:39 General: Appears in no apparent distress. uncomfortable, Behavior is calm, cooperative, bm7 appropriate for age. Pain: Complains of pain in pelvis. EENT: No deficits noted. No signs and/or symptoms were reported regarding the EENT system. Neuro: No deficits noted. Cardiovascular: No deficits noted. Respiratory: No deficits noted. GI: No deficits noted. No signs and/or symptoms were reported involving the gastrointestinal system. : Reports burning with urination, discharge, from penis that is malodorous. : Derm: No deficits noted. No signs and/or symptoms reported regarding the dermatologic system. Musculoskeletal: No deficits noted. No signs and/or symptoms reported regarding the musculoskeletal system. Historical: - Allergies: 09:39 No Known Allergies; bm7 - Home Meds: 09:39 None [Active]; bm7 - PMHx: 09:39 None; bm7 - PSHx: 09:39 None; bm7 - Immunization history:: Adult Immunizations up to date, Client reports having NOT received the Covid vaccine. - Social history:: Smoking status: Patient denies any tobacco usage or history of. Patient uses alcohol, occasionally. Screenin:53 Abuse screen: Denies threats or abuse. Nutritional screening: No deficits noted. bm7 Tuberculosis screening: No symptoms or risk factors identified. Fall Risk None identified. Assessment: 09:53 Reassessment: No changes from previously documented assessment. bm7 Vital Signs: 09:37 BP 138 / 91; Pulse 79; Resp 16; Temp 98.0(TE); Pulse Ox 100% on R/A; Weight 86.18 kg; bm7 Height 5 ft. 10 in. (177.80 cm); Pain 5/10; 09:37 Body Mass Index 27.26 (86.18 kg, 177.80 cm) bm7 ED Course: 09:21 Patient arrived in ED. am2 09:22 Patrice Ordoñez PA is PHCP. [facility] 09:22 Aren Smith DO is Attending Physician. jmm 09:37 Arm band placed on right wrist. bm7 09:39 Triage completed. bm7 09:53 Patient has correct armband on for positive identification. bm7 09:53 No provider procedures requiring assistance completed. Patient did not have IV access bm7 during this emergency room visit. Administered Medications: 09:51 Drug: AZITHromycin 1 grams Route: PO; bm7 09:54 Follow up: Response: No adverse reaction bm7 09:52 Drug: Rocephin (cefTRIAXone) 500 mg Route: IM; Site: right gluteus; bm7 09:54 Follow up: Response: No adverse reaction bm7 Medication: 09:53 VIS not applicable for this client. bm7 Outcome: 09:42 Discharge ordered by . [facility] 09:53 Discharged to home ambulatory. bm7 09:53 Condition: good 09:53 Discharge instructions given to patient, Instructed on discharge instructions, Demonstrated understanding of instructions. 09:54 Patient left the ED. bm7 Signatures: Patrice Ordoñez PA PA jmm Moreno, Amanda am2 Marjorie Tyler, RN RN bm7
--- NOTE | 2022-07-20 09:43 | EDPHYS ---
Physician Documentation [facility] Name: Naveen Emmanuel Age: 31 yrs Sex: Male : 1990 Arrival Date: 07/20/2022 Time: 09:21 Bed Waiting Private MD: ED Physician Aren Smith HPI: 07/20 09:40 This 31 yrs old Black Male presents to ER via Ambulatory with complaints of STD jmm Exposure. 09:40 Onset: The symptoms/episode began/occurred 1 day(s) ago. Modifying factors: The jmm symptoms are alleviated by nothing, the symptoms are aggravated by urinating. Associated signs and symptoms: Pertinent positives: dysuria. It is unknown whether or not the patient has had similar symptoms in the past. Patient states his partner was recently diagnosed with gonorrhea. Complains of dysuria. Denies abdominal pain, vomiting. . Historical: - Allergies: 09:39 No Known Allergies; bm7 - Home Meds: 09:39 None [Active]; bm7 - PMHx: 09:39 None; bm7 - PSHx: 09:39 None; bm7 - Immunization history:: Adult Immunizations up to date, Client reports having NOT received the Covid vaccine. - Social history:: Smoking status: Patient denies any tobacco usage or history of. Patient uses alcohol, occasionally. ROS: 09:40 Constitutional: Negative for fever, chills, and weight loss, Cardiovascular: Negative jmm for chest pain, palpitations, and edema, Respiratory: Negative for shortness of breath, cough, wheezing, and pleuritic chest pain. 09:40 : Positive for urinary symptoms. 09:40 All other systems are negative. Exam: 09:40 Constitutional: This is a well developed, well nourished patient who is awake, alert, jmm and in no acute distress. Head/Face: atraumatic. Eyes: EOMI, no conjunctival erythema appreciated ENT: Moist Mucus Membranes Neck: Trachea midline, Supple Chest/axilla: Normal chest wall appearance and motion. Cardiovascular: Regular rate and rhythm. No edema appreciated Respiratory: Normal respirations, no respiratory distress appreciated Abdomen/GI: Non distended Skin: General appearance color normal MS/ Extremity: Moves all extremities, no obvious deformities appreciated, no edema noted to the lower extremities Neuro: Awake and alert Psych: Behavior is normal, Mood is normal, Patient is cooperative and pleasant Vital Signs: 09:37 BP 138 / 91; Pulse 79; Resp 16; Temp 98.0(TE); Pulse Ox 100% on R/A; Weight 86.18 kg; bm7 Height 5 ft. 10 in. (177.80 cm); Pain 5/10; 09:37 Body Mass Index 27.26 (86.18 kg, 177.80 cm) bm7 MDM: 09:39 Patient medically screened. [facility] 09:41 Data reviewed: vital signs, nurses notes. Counseling: I had a detailed discussion with lyla the patient and/or guardian regarding: the historical points, exam findings, and any diagnostic results supporting the discharge/admit diagnosis, the need for outpatient follow up, to return to the emergency department if symptoms worsen or persist or if there are any questions or concerns that arise at home. ED course: Will treat for sti. patient is advised to follow up with pcp and otherwise given strict return precautions. patient understood and agrees with the plan of care. . Administered Medications: 09:51 Drug: AZITHromycin 1 grams Route: PO; bm7 09:54 Follow up: Response: No adverse reaction bm7 09:52 Drug: Rocephin (cefTRIAXone) 500 mg Route: IM; Site: right gluteus; bm7 09:54 Follow up: Response: No adverse reaction bm7 Disposition: 22:42 Co-signature as Attending Physician, Aren Smith DO I agree with the assessment and ms3 plan of care. Disposition Summary: 07/20/22 09:42 Discharge Ordered Location: Home [facility] Condition: Stable [facility] Diagnosis - Dysuria [facility] Followup: [facility] - With: Private Physician - When: 2 - 3 days - Reason: Recheck today's complaints, Continuance of care, Re-evaluation by your physician Discharge Instructions: - Discharge Summary Sheet [facility] - Dysuria [facility] Forms: - Medication Reconciliation Form [facility] - Thank You Letter [facility] - Antibiotic Education [facility] - Prescription Opioid Use [facility] Signatures: Patrice Ordoñez PA PA jmm Sims, Marcus, DO DO ms3 Marjorie Tyler, RN RN bm7
[2022-07-20] MEDS ORDERED: WATER FOR INJ,STERILE 10 ML ONE (09:58)
[2022-07-20] MEDS ORDERED: CEFTRIAXONE 1000 MG/VIAL ONE (09:58)
[2022-07-20] MEDS ORDERED: AZITHROMYCIN 250 MG TAB ONE (09:58)
[2022-07-20 10:13] VITALS: BP 138/91; TEMP 98; O2SAT 100
== END 2022-07-20 09:54 | disposition home or self-care (01) ==
LOC: ER 09:09
DX: R30.0 Dysuria (principal)
CPT/HCPCS: 96372; 99283

== ENCOUNTER 2023-06-29 14:51 | Emergency (ER) | payer SELFPAY ==
--- OUTSIDE RECORDS SUMMARY | 2023-06-29 14:53 | XMS REPORT | Continuity of Care Document ---
:1990 Author Organization [facility] t Address [address] [place] [address] [place] [id number] Care Team Providers Name Role Phone Pcp, [...] rs active active ity of problems problems [facility] Allergies, Adverse Reactions, Alerts Allergy Allergy Status Severity Reaction(s) Onset Inactive Treating Comm ents Source Name Type Date Date Clinician NO KNOWN Drug Active Univers ALLERGIE Class ity of S [facility] Social History Social Habit Start Date Stop Date Quantity Comments Source Exposure to 2022-05-29 2022-06-08 Not sure [facility] SARS-CoV-2 (event) 00:00:00 17:38:00 Medica l Branch Sex Assigned At [birth year] [facility] 00:00:00 00:00:00 Medical Branch Smoking Status Start Date Stop Date Source Tobacco smoking consumption Univ [facility] unknown Branch Medications Ordered Filled Start Stop [...] Royce as mg 00 :00 dose, On [facility] Branch 06/08/22 at 1830, BRAIN
Re ason for Anti-Infec tive: Documented Infection< br>Documen surinder Infection Site: Urine
D uration of Therapy: 7 days doxycycline 2021- No 100mg 100 mg, U nivers hyclate 06-08 Oral, ity of (Vibramycin 23:30: 00:11 ONCE, [place] capsule 00 :00 dose, On Medica l 100 mg [facility] Branch 06/08/22 at 1830, BRAIN
Re ason for Anti-Infec tive: Empiric Therapy for Suspected Infection< br>Empiric Therapy Site: Urine
D uration of therapy: 7 days doxycycline 2021- No [id number] 100mg Take 1 Univers hyclate 100 06-08 capsule by i ty of mg capsule 00:00: 04:59 mouth in [place] 00 :00 the Medical morning Branch and 1 capsule in the evening. Do all this for 7 days. metroNIDAZO 2021- No [id number] 500mg Take 1 Univers LE 500 mg [...] No Univers medications 12-29 ity of 14:50: [address] Vital Signs Vital Name Observation Time Observation Value Comments Source Systolic blood 2022-06-08 22:36:00 140 mm[Hg] Univer sity of [facility] Diastolic blood 2022-06-08 22:36:00 87 mm[Hg[facility] 2022-06-08 22:36:00 92 /min [facility] Body temperature 2022-06-08 22:36:00 36.61 Rachel [facility] Respiratory rate 2022-06-08 22:36:00 14 /min [facility] Body height 2022-06-08 22:36:00 180.3 cm [facility] Body weight 2022-06-08 22:36:00 86.183 kg [facility] BMI 2022-06-08 22:36:00 26.50 kg/m2 [facility] Oxygen saturation in 2022-06-08 22:36:00 99 /min [facility] Arterial blood by [facility] Pulse oximetry Branch Systolic blood 2021-12-29 20:49:00 153 mm[Hg] Univer sity of [facility] Diastolic blood 2021-12-29 20:49:00 86 mm[Hg] [facility] 2021-12-29 20:49:00 81 /min [facility] Body temperature 2021-12-29 20:49:00 37.22 Rachel [facility] 2021-12-29 20:49:00 16 /min [facility] Body height 2021-12-29 20:49:00 180.3 cm [facility] Body weight 2021-12-29 20:49:00 90.719 kg [facility] BMI 2021-12-29 20:49:00 27.89 kg/m2 [facility] Oxygen saturation in 2021-12-29 20:49:00 98 /min [facility] Arterial blood by [facility] Pulse oximetry [place] Procedures Procedure Date / Time Performed Performing Clinician Sourc e URINALYSIS 2022-06-08 22:43:00 Nahomy [facility] CONSENT/REFUSAL FOR 2022-06-08 22:25:00 [facility]igned, [facility] Name Medical Branch TREATMENT NOTICE OF PRIVACY 2021-12-29 20:48:28 Doctor Unassigned, No [facility] Name Medical Branch CONSENT/REFUSAL FOR 2021-12-29 20:45:33 Doctor Unassigned, [facility] Name Medical Branch TREATMENT Encounters Start End Encounter Admission Attending Care Care Encounter Source Date/Time Date/Time Type Type Clinicians Facility Department ID 2022-06-08 2022-06-08 Emergency X [facility] ERT [id number] Univers 17:43:00 19:52:00 CASSIDY [facility] 2022-06-08 2022-06-08 Emergency Claude [facility] [id number] Univers 17:43:00 19:52:00 Cassidy BROWN [id number] yunior [facility] [id number] [facility] [id number] [facility] 084 Branch 2021-12-29 2021-12-29 Emergency Gretta KYCHANNING [id number] Univers 14:52:00 15:43:00 Nahomy BROWN [id number] yunior [facility] [id number] [facility] [id number] [address] 2021-12-29 2021-12-29 Emergency X [facility] ERT [id number] Univers 14:52:00 15:43:00 NAHOMY [facility]ica [facility] 2020-03-15 2020-03-15 [facility] [id number] 14:10:58 15:32:00 Fausto Brown [id number] [place] [id number] [place] [id number] [facility] 2020-03-15 2020-03-15 Emergency [facility] [id number] Univers 14:10:58 14:10:58 FAUSTO mojica [facility] Results This patient has no known results.
--- NOTE | 2023-06-29 15:42 | ER ---
Nurse's Notes [facility] Name: Naveen Emmanuel Age: 32 yrs Sex: Male : 1990 Arrival Date: 06/29/2023 Time: 14:51 Bed 7 Private MD: Diagnosis: Nonspecific urethritis;Dysuria Presentation: 06/29 15:12 Chief complaint: Patient states: PENILE DISCHARGE AND DYSURIA. Coronavirus screen: At cm10 this time, the client does not indicate any symptoms associated with coronavirus-19. Ebola Screen: No symptoms or risks identified at this time. Initial Sepsis Screen: Does the patient meet any 2 criteria? No. Patient's initial sepsis screen is negative. Does the patient have a suspected source of infection? No. Patient's initial sepsis screen is negative. Risk Assessment: Do you want to hurt yourself or someone else? Patient reports no desire to harm self or others. Onset of symptoms is unknown. 15:12 Method Of Arrival: Ambulatory cm10 15:12 Acuity: CELY 4 cm10 Triage Assessment: 15:51 Neuro: Level of Consciousness is awake, alert, obeys commands, Oriented to person, ap3 place, time, situation. Cardiovascular: Patient's skin is warm and dry. Respiratory: No deficits noted. Airway is patent Respiratory effort is even, unlabored, Respiratory pattern is regular, symmetrical. GI: No deficits noted. 15:55 General: Appears in no apparent distress. comfortable, Behavior is calm, cooperative, ld1 appropriate for age. Pain: Denies pain. EENT: No signs and/or symptoms were reported regarding the EENT system. Historical: - Allergies: 15:50 No Known Allergies; ap3 - Home Meds: 15:50 None [Active]; ap3 - PMHx: 15:50 None; ap3 - Social history:: Smoking status: unknown. - Family history:: not pertinent. Screenin:51 [facility] ED Fall Risk Assessment (Adult) History of falling in the last 3 months, ap3 including since admission No falls in past 3 months (0 pts). Abuse screen: Denies threats or abuse. Nutritional screening: No deficits noted. Tuberculosis screening: No symptoms or risk factors identified. Assessment: 15:55 Reassessment: No changes from previously documented assessment. Patient is alert, ld1 oriented x 3, equal unlabored respirations, skin warm/dry/pink. See triage assessment. Vital Signs: 15:12 BP 144 / 94; Pulse 85; Resp 16; Temp 98; Pulse Ox 97% ; Weight 90.72 kg; Height 5 ft. cm10 11 in. ; 15:55 BP 136 / 89; Pulse 81; Resp 18; Pulse Ox 98% on R/A; ld1 15:12 Body Mass Index 27.89 (90.72 kg, 180.34 cm) cm10 ED Course: 14:53 Patient arrived in ED. ts1 14:57 Remberto Marie MD is Attending Physician. [facility] 15:13 Triage completed. cm10 15:27 Test, Urine Sent. ld1 15:50 Arm band placed on right wrist. ap3 15:51 Patient has correct armband on for positive identification. Bed in low position. Call ap3 light in reach. Provided Education on: discharge instructions. 15:54 Vani Smith, RN is Primary Nurse. ld1 15:55 No provider procedures requiring assistance completed. Patient did not have IV access ld1 during this emergency room visit. Administered Medications: 15:32 CANCELLED (Duplicate Order): NS 0.9% IV 1000 ml IV at 1 bolus Per protocol; 1000 mL rodrick bolus 15:54 Drug: AZITHromycin PO 1 grams Route: PO; ld1 15:54 Drug: Doxycycline PO 200 mg Route: PO; ld1 15:55 Drug: Rocephin (cefTRIAXone) IM 1 grams Route: IM; Site: left deltoid; ld1 Medication: 15:51 VIS not applicable for this client. ap3 Outcome: 15:41 Discharge ordered by . [facility] 15:55 Discharged to home ambulatory. ld1 15:55 Condition: stable 15:55 Discharge instructions given to patient, Instructed on discharge instructions, follow up and referral plans. medication usage, Demonstrated understanding of instructions, follow-up care, medications, Prescriptions given X 2. 15:56 Patient left the ED. ld1 Signatures: Remberto Marie MD MD cha Prokisch, Amanda, RN RN ap3 Vani Smith, RN RN ld1 Mei Nieves PAS PAS ts1 Graciela Salinas, RN RN cm10
--- NOTE | 2023-06-29 15:42 | EDPHYS ---
Physician Documentation [facility] Name: Naveen Emmanuel Age: 32 yrs Sex: Male : 1990 Arrival Date: 06/29/2023 Time: 14:51 Bed 7 Private MD: ED Physician Remberto Marie HPI: 06/29 15:35 This 32 yrs old Black Male presents to ER via Ambulatory with complaints of STD rodrick Exposure. 15:35 The patient presents with urinary symptoms, dysuria. Onset: The symptoms/episode rodrick began/occurred 2 day(s) ago. Modifying factors: The symptoms are alleviated by nothing. Associated signs and symptoms: The patient has no apparent associated signs or symptoms. Severity of symptoms: At their worst the symptoms were moderate, in the emergency department the symptoms are unchanged. The patient has experienced similar episodes in the past, a few times. Historical: - Allergies: 15:50 No Known Allergies; ap3 - Home Meds: 15:50 None [Active]; ap3 - PMHx: 15:50 None; ap3 - Social history:: Smoking status: unknown. - Family history:: not pertinent. ROS: 15:36 Constitutional: Negative for fever, chills, and weight loss, Eyes: Negative for injury, rodrick pain, redness, and discharge, ENT: Negative for injury, pain, and discharge, Neck: Negative for injury, pain, and swelling, Cardiovascular: Negative for chest pain, palpitations, and edema, Respiratory: Negative for shortness of breath, cough, wheezing, and pleuritic chest pain, Abdomen/GI: Negative for abdominal pain, nausea, vomiting, diarrhea, and constipation, Back: Negative for injury and pain, MS/Extremity: Negative for injury and deformity, Skin: Negative for injury, rash, and discoloration, Neuro: Negative for headache, weakness, numbness, tingling, and seizure, Psych: Negative for depression, anxiety, suicide ideation, homicidal ideation, and hallucinations, Allergy/Immunology: Negative for hives, rash, and allergies, Endocrine: Negative for neck swelling, polydipsia, polyuria, polyphagia, and marked weight changes, Hematologic/Lymphatic: Negative for swollen nodes, abnormal bleeding, and unusual bruising. 15:36 : Positive for burning with urination, penile discharge. Exam: 15:36 Constitutional: This is a well developed, well nourished patient who is awake, alert, rodrick and in no acute distress. Head/Face: Normocephalic, atraumatic. Eyes: Pupils equal round and reactive to light, extra-ocular motions intact. Lids and lashes normal. Conjunctiva and sclera are non-icteric and not injected. Cornea within normal limits. Periorbital areas with no swelling, redness, or edema. ENT: Nares patent. No nasal discharge, no septal abnormalities noted. Tympanic membranes are normal and external auditory canals are clear. Oropharynx with no redness, swelling, or masses, exudates, or evidence of obstruction, uvula midline. Mucous membranes moist. Neck: Trachea midline, no thyromegaly or masses palpated, and no cervical lymphadenopathy. Supple, full range of motion without nuchal rigidity, or vertebral point tenderness. No Meningismus. Chest/axilla: Normal chest wall appearance and motion. Nontender with no deformity. No lesions are appreciated. Cardiovascular: Regular rate and rhythm with a normal S1 and S2. No gallops, murmurs, or rubs. Normal PMI, no JVD. No pulse deficits. Respiratory: Lungs have equal breath sounds bilaterally, clear to auscultation and percussion. No rales, rhonchi or wheezes noted. No increased work of breathing, no retractions or nasal flaring. Abdomen/GI: Soft, non-tender, with normal bowel sounds. No distension or tympany. No guarding or rebound. No evidence of tenderness throughout. Back: No spinal tenderness. No costovertebral tenderness. Full range of motion. Skin: Warm, dry with normal turgor. Normal color with no rashes, no lesions, and no evidence of cellulitis. MS/ Extremity: Pulses equal, no cyanosis. Neurovascular intact. Full, normal range of motion. Neuro: Awake and alert, GCS 15, oriented to person, place, time, and situation. Cranial nerves II-XII grossly intact. Motor strength 5/5 in all extremities. Sensory grossly intact. Cerebellar exam normal. Normal gait. Psych: Awake, alert, with orientation to person, place and time. Behavior, mood, and affect are within normal limits. 15:36 : CVA tenderness, is absent, Male external genitalia: normal, Bladder: is normal, Sexual behavior: the patient is sexually active, unk. Vital Signs: 15:12 BP 144 / 94; Pulse 85; Resp 16; Temp 98; Pulse Ox 97% ; Weight 90.72 kg; Height 5 ft. cm10 11 in. ; 15:55 BP 136 / 89; Pulse 81; Resp 18; Pulse Ox 98% on R/A; ld1 15:12 Body Mass Index 27.89 (90.72 kg, 180.34 cm) cm10 MDM: 14:57 Patient medically screened. [facility] 15:38 Differential diagnosis: UTI, prostatitis, urethritis. Data reviewed: vital signs, [facility] nurses notes. Consideration of Admission/Observation Escalation of care including admission/observation considered. I considered the following discharge prescriptions or medication management in the emergency department Medications were administered in the Emergency Department. See MAR. Historians other than the Patient: none. Care significantly affected by the following chronic conditions: hx of std. Counseling: I had a detailed discussion with the patient and/or guardian regarding the historical points, exam findings, and any diagnostic results supporting the discharge/admit diagnosis, the need for outpatient follow up. 06/29 15:01 Order name: Urinalysis w/ reflexes rodrick Administered Medications: 15:32 CANCELLED (Duplicate Order): NS 0.9% IV 1000 ml IV at 1 bolus Per protocol; 1000 mL rodrick bolus 15:54 Drug: AZITHromycin PO 1 grams Route: PO; ld1 15:54 Drug: Doxycycline PO 200 mg Route: PO; ld1 15:55 Drug: Rocephin (cefTRIAXone) IM 1 grams Route: IM; Site: left deltoid; ld1 Disposition Summary: 06/29/23 15:41 Discharge Ordered Location: Home [facility] Problem: new [facility] Symptoms: have improved [facility] Condition: Stable [facility] Diagnosis - Nonspecific urethritis rodrick - Dysuria [facility] Followup: [facility] - With: Private Physician - When: 2 - 3 days - Reason: Recheck today's complaints, Continuance of care, Re-evaluation by your physician Discharge Instructions: - Discharge Summary Sheet rodrick - Dysuria rodrick - Urethritis, Adult [facility] - Preventing Sexually Transmitted Infections, Adult [facility] Forms: - Medication Reconciliation Form [facility] - Thank You Letter [facility] - Antibiotic Education rodrick - Prescription Opioid Use rodrick - Patient Portal Instructions [facility] - Leadership Thank You Letter [facility] Prescriptions: - Doxycycline Hyclate 100 mg Oral Tablet - take 1 tablet by ORAL route every 12 hours; 20 tablet; Refills: 0, Product [facility] Selection Permitted - Cipro 500 mg Oral Tablet - take 1 tablet by ORAL route every 12 hours for 7 days; 14 tablet; Refills: 0, [facility] Product Selection Permitted Signatures: Dispatcher [employer] Remberto Torrez MD MD cha Prokisch, Amanda RN RN ap3 Vani Smith RN RN ld1 Corrections: (The following items were deleted from the chart) 15:32 15:01 NS 0.9% IV 1000 ml IV at 1 bolus Per protocol; 1000 mL bolus ordered. [facility] 15:32 15:01 Labs collected and sent ordered. [facility] 15:38 15:01 IV Saline Lock ordered. [facility] ld1
[2023-06-29] MEDS ORDERED: DOXYCYCLINE 100 MG CAP PO ONE (15:59)
[2023-06-29] MEDS ORDERED: CEFTRIAXONE 1000 MG/VIAL ONE (15:59)
[2023-06-29] MEDS ORDERED: AZITHROMYCIN 250 MG TAB ONE (15:59)
[2023-06-29] MEDS ORDERED: WATER FOR INJ,STERILE 10 ML ONE (15:59)
[2023-06-29 16:00] LABS: Specific Gravity 1.024 (1.005-1.030); Urine Bacteria None Seen /HPF (<20); Urine Bilirubin NEGATIVE (Negative); Urine Blood Negative (Negative); Urine Clarity Clear (Clear); Urine Color Light-Yellow (Yellow); Urine Crystals Unidentified Few /HPF (None Seen); Urine Glucose NEGATIVE (Negative); Urine Protein NEGATIVE (Negative); Urine RBC <5 /HPF (None Seen); Urine Urobilinogen Normal (Normal); Urine pH 7.5 (5.0-7.0)
[2023-06-29 16:10] VITALS: TEMP 98
[2023-06-29 16:11] VITALS: BP 136/89; O2SAT 98
== END 2023-06-29 15:56 | disposition home or self-care (01) ==
LOC: ER 14:51
DX: N34.1 Nonspecific urethritis (principal)
CPT/HCPCS: 81001; 96372; 99284; J0696